=== PATIENT | male | born 1985 | race Caucasian/White ===

== ENCOUNTER 2020-01-25 12:35 | Emergency (ER) | payer OTHER, SELFPAY ==
[2020-01-25 12:30] VITALS: BP 95/55; PULSE 88; RESP 24; TEMP 36.7; O2SAT 100
--- NOTE | 2020-01-25 12:42 | DI.CT.S_ITS ---
PROCEDURE: CT CHEST ABD PEL W CON INDICATIONS: trauma TECHNIQUE: After the administration of intravenous contrast, 5 mm thick sections acquired from the lung apices to the symphysis. 2.5 mm thick coronal and sagittal reformats were acquired. Additional 7 mm thick coronal maximum intensity projection (MIP) reformats acquired through the lungs. Optional 10-minute delayed imaging may be performed from the kidneys to the bladder. For radiation dose reduction, the following was used: automated exposure control, adjustment of mA and/or kV according to patient size. COMPARISON: None. FINDINGS: Image quality: Diagnostic. CHEST: Lungs: There is of increased density are identified within the posterior bilateral lungs. There is no effusion or pneumothorax. No larger pulmonary consolidation is identified. There is no lung mass or definitive pulmonary nodule. Mediastinum: No mediastinal hematomas. Heart size is normal. No pericardial effusion. Thoracic aorta and pulmonary arteries demonstrate normal size and enhancement. No mediastinal or hilar adenopathy. Esophagus is normal in caliber. No hiatal hernia. Chest wall and bones: There is a comminuted mid right clavicle shaft fracture with moderate soft tissue edema/swelling within the adjacent soft tissues. There may be a nondisplaced posterior 1st right rib fracture. There is a moderately displaced anterior right 2nd rib fracture. There may also be a nondisplaced lateral right 6th rib fracture (image 45, series 10). No definite additional rib fractures are appreciated. No subcutaneous emphysema. No axillary or supraclavicular adenopathy. Thyroid gland is not adequately evaluated on CT, but is not enlarged. ABDOMEN: Solid organs: Liver is normal in size and enhancement, without lacerations. Gallbladder is not enlarged or inflamed. Biliary system is non-dilated. Pancreas enhances normally, without transection. Spleen is normal in size and enhancement, without lacerations. No adrenal hematomas. Both kidneys enhance normally, without hydronephrosis or lacerations. Peritoneum and bowel: No free fluid or air. Unenhanced bowel loops demonstrate normal wall thickness and caliber. Appendicolith is identified within it a mildly prominent appendix without surrounding inflammation appreciated. Nodes and vessels: No retroperitoneal or mesenteric adenopathy. Aorta and inferior vena cava are normal in size and enhancement. Bones: No acute fracture of the lumbar spine is evident. PELVIS: Genitourinary: Extrinsic compression of the urinary bladder related to pelvic hematomas is identified. However, in no adjacent edema about the bladder itself is present. The prostate is not enlarged. Other pelvic soft tissues: Increased density fluid is identified along the bilateral pelvic side haley, likely representing the space of Retzius. There is also presacral hematoma present. Enlargement of the obturator muscles and proximal adductor muscles is present. Soft tissue edema superficial to the muscles just above the level of the right iliac weaning is identified, suggesting soft tissue injury at this location. Bones: There is a highly comminuted intra-articular fracture evident involving the left acetabulum. There is medial displacement of the medial wall of the left acetabulum and adjacent femoral head by up to 2.5 cm. Moderate degenerative changes of the left hip are more than expected for age. Comminution involving the posterior and superior haley of the acetabulum are evident. No definite fracture lines are appreciated extending into the superior or inferior pubic rami. No definitive fracture c extending into the left iliac weaning. There is widening of the left sacroiliac joint, when compared to the right. No definite sacral fracture is appreciated. There also is a moderately comminuted fracture evident involving the right acetabulum with comminution and medial displacement of the medial acetabular wall. There is no definite involvement of the superior or inferior pubic rami. No significant extension into the iliac bone is present. There is no widening of the right sacroiliac joint. Moderate degenerative changes of the right hip are present. There slight irregularity along the superior aspect of the right femoral head which could potentially represent mild impaction. However, no definitive displaced hip fractures are evident. No widening of the pubis symphysis is identified. IMPRESSION: 1. Comminuted mid right clavicle shaft fracture. 2. Anterior right 2nd rib fracture. There may also be nondisplaced posterior right 1st and lateral right 6th rib fractures. 3. Probable areas of pulmonary contusion. No definitive pneumothorax. 4. Comminuted intra-articular fractures involving both acetabuli with moderate medial displacement of the medial left acetabular wall and left femoral head (transverse fracture involving the anterior and posterior columns). (The fracture of the right acetabulum appears to represent an isolated anterior column fracture.) No discrete fractures of the bilateral femoral heads are present. However, there may be an impaction fracture along the superolateral margin of the right femoral head. 5. Widening of the left sacroiliac joint without an adjacent fracture appreciated. 6. Hematoma within it the space of Retzius in the pelvis is felt to be related to the pelvic fractures. No definitive evidence to suggest bladder or is identified. However, clinical correlation with hematuria is recommended to exclude the possibility of a potential bladder injury. 7. No evidence of solid organ laceration or contusion. Dictated by: Tay Lares M.D. on 01/25/2020 at 12:30 Approved by: Tay Lares M.D. on 01/25/2020 at 12:46
--- NOTE | 2020-01-25 12:42 | DI.CT.S_ITS ---
PROCEDURE: CT HEAD/BRAIN WO CON INDICATIONS: trauma TECHNIQUE: Noncontrast 4.5 mm thick angled axial sections acquired from the foramen magnum to the vertex, with coronal and sagittal reformats. For radiation dose reduction, the following was used: automated exposure control, adjustment of mA and/or kV according to patient size. COMPARISON: None. FINDINGS: Image quality: Diagnostic. CSF spaces: Basal cisterns are patent. No extra-axial fluid collections. Ventricles are normal in size and shape. Brain: No midline shift. No intracranial masses or hemorrhage. Lerner-white matter interface is normal. Skull and face: Calvarium and visualized facial bones are intact, without suspicious lesions. Sinuses: Visualized sinuses and mastoids are clear. IMPRESSION: Negative head CT. No acute intracranial hemorrhage. Dictated by: Tay Lares M.D. on 01/25/2020 at 12:25 Approved by: Tay Lares M.D. on 01/25/2020 at 12:26
--- NOTE | 2020-01-25 12:42 | DI.CT.S_ITS ---
PROCEDURE: CT CERVICAL SPINE WO CON INDICATIONS: trauma TECHNIQUE: Noncontrast 3 mm thick sections acquired from the skull base to the T4 level. Sagittal and coronal reformats were then constructed. For radiation dose reduction, the following was used: automated exposure control, adjustment of mA and/or kV according to patient size. COMPARISON: None. FINDINGS: Image quality: Diagnostic. Bones: The craniocervical and atlantoaxial joints are well-maintained. The odontoid is intact. The vertebral body heights and prevertebral soft tissues are within normal limits throughout the cervical spine without evidence to suggest acute compression fracture. No other fractures are evident within the cervical spine. (There are fractures identified at least involving the anterior 2nd right rib and the right clavicle that are not well characterized.) The The bone mineralization is within normal limits. Mild degenerative changes of the cervical spine are best appreciated at the level of C5-6 with disc height loss and disc osteophyte complex formation. Soft tissues: No prevertebral soft tissue swelling. The imaged lung apices are clear. Imaged portions of the mediastinum are unremarkable. Soft tissue edema is evident overlying the right shoulder region related to the right clavicle fracture. A tubular structure is seen entering the nasal cavity with the tip positioned within the the supraglottic region. Otherwise, the remainder of the imaged soft tissues of the neck are within normal limits. IMPRESSION: 1. No acute fractures of the cervical spine. 2. Nasopharyngeal tube is positioned within the tip above the epiglottis. Dictated by: Tay Lares M.D. on 01/25/2020 at 12:26 Approved by: Tay Lares M.D. on 01/25/2020 at 12:29
[2020-01-25 12:54] LABS: Add Manual Diff / Slide Review NO; Basophils Absolute Auto 100 /uL (0-100); Basophils Percent Auto 0.3 % (0-2); Eosinophils Absolute Auto 200 /uL (0-450); Eosinophils Percent Auto 0.7 % (2-4); Hematocrit 44.6 % (41-53); Hemoglobin 14.9 g/dL (13.5-17.5); Lymphocytes Absolute Auto 2800 /uL (1100-4500); Lymphocytes Percent Auto 12.1 % (25-40); Mean Corpuscular HGB Conc 33.4 % (30-36); Mean Corpuscular Hemoglobin 31.3 PG (26-34); Mean Corpuscular Volume 93.5 fL (80-100); Monocytes Absolute Auto 1000 /uL (0-900); Monocytes Percent Auto 4.3 % (3-14); Neutrophils Absolute Auto 19200 /uL (1500-7000); Neutrophils Percent Auto 82.6 % (50-75); Platelet Count 229 X10^3/uL (150-400); Red Blood Cell Count 4.77 X10^6/uL (4.5-5.9); Red Cell Distribution Width 12.6 % (11.6-14.8); White Blood Cell Count 23.2 X10^3/uL (4.5-11.0)
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
[2020-01-25 13:12] LABS: Albumin 5.1 g/dL (3.5-5.0); Albumin Globulin Ratio 1.7 (1.0-2.8); Alkaline Phosphatase 47 U/L (38-126); Aspartate Aminotransferase 60 IU/L (17-59); BUN Creatinine Ratio 9.8 (6-22); Bilirubin Total 2.2 mg/dL (0.2-1.3); Blood Urea Nitrogen 14 mg/dL (9-20); Calcium 9.4 mg/dL (8.4-10.2); Carbon Dioxide 12 mmol/L (22-32); Chloride 106 mmol/L (98-107); Estimated Glomerular Filt Rate 56.6 mL/min (>60); Ethanol (ETOH) < 10 mg/dL; Glucose 169 mg/dL (70-100); Lipase 258 U/L (23-300); Potassium 3.2 mmol/L (3.4-5.1); Sodium 143 mmol/L (137-145); Total Protein 8.1 g/dL (6.3-8.2)
[2020-01-25 13:18] LABS: Alanine Aminotransferase 32 IU/L (<50); HEMOLYSIS 28 (0-50)
[2020-01-25 13:45] VITALS: BP 149/64; PULSE 89; RESP 21; O2SAT 100
--- NOTE | 2020-01-25 13:56 | PC.NURSE ---
See trauma flowsheet.
--- NOTE | 2020-01-25 14:08 | PC.NURSE ---
Pts paperwork including: transfer authorization, scan reports, docs note, RN note, [facility] flowsheet
--- NOTE | 2020-01-25 14:11 | PC.NURSE ---
Pts paperwork faxed to [employer] including: transfer authorization, scan reports, docs note, RN note, [facility] flowsheet, facesheet, and labs. Paperwork originally not able to be given to [employer] at time of transfer due to emergent state.
[2020-01-25 14:14] LABS: UR Morphine/Opiate cutoff 300 Negative (Negative); Ur Creatinine Normal (Normal); Ur Specific Gravity Normal (Normal); Urine Amphetamines Negative (Negative); Urine Barbiturates Negative (Negative); Urine Benzodiazepines Negative (Negative); Urine Cocaine Negative (Negative); Urine MDMA Negative (Negative); Urine Methadone Negative (Negative); Urine Methamphetamines Negative (Negative); Urine Oxycodone Negative (Negative); Urine Phencyclidine Negative (Negative); Urine Tetrahydrocannabinol Positive (Negative); Urine Tricyclic Antidepressant Negative (Negative); Urine pH Normal (Normal)
== END 2020-01-25 13:35 | disposition short-term general hospital (02) ==
PROVIDERS: Emergency Provider Emergency Medicine
DX: S32.401A Unspecified fracture of right acetabulum, initial encounter for closed fracture (principal); G40.89 Other seizures; S09.90XA Unspecified injury of head, initial encounter; V29.40XA Motorcycle driver injured in collision with unspecified motor vehicles in traffic accident, initial encounter
CPT/HCPCS: 36415; 36430; 70450; 71260; 72125; 74177; 80053; 80305; 80320; 83690; 85025; 86850; 86900; 86901; 93005; 99283; 99285; 99291; P9016; Q9967